=== PATIENT | male | born 1990 | race Caucasian/White ===

== ENCOUNTER 2019-08-14 11:57 | Day surgery (SDC) | payer OTHER ==
[~2019-08-14] VITALS: Ht 190.5 cm; Wt 103.9 kg
[~2019-08-14 11:57] MED LIST: CEFAZOLIN 1,000 MG ONE; FENTANYL PF 250 MCG/5ML ONE; GLYCOPYRROLATE 0.2MG/1ML, 5ML ONE; MIDAZOLAM 1 MG/ML, 2ML ONE; NEOSTIGMINE 1 MG/ML, 10ML ONE; None at This Time; PROPOFOL 10 MG/ML, 20ML ONE; ROCURONIUM 10MG/ML,5ML ONE; ROPIvacaine/PF 0.2%, 20 ML ONE
[2019-08-14] MEDS ORDERED: LACTATED RINGERS 1,000 ML IV ONE (12:15)
[2019-08-14] MEDS ORDERED: GABAPENTIN 300 MG CAPSULE PO STA (12:16)
[2019-08-14] MEDS ORDERED: ACETAMINOPHEN 500 MG TABLET PO STA (12:16)
[2019-08-14 12:27] VITALS: BP 121/83
[2019-08-14] MEDS ORDERED: LIDOCAINE 1%-EPI 1:100K, 20ML ONE (12:56)
[2019-08-14] MEDS ORDERED: ROPIvacaine/PF 0.5%, 30 ML ONE (12:56)
[2019-08-14] MEDS ORDERED: LABETALOL 5MG/ML, 20ML IV PRN (13:00)
[2019-08-14] MEDS ORDERED: HALOPERIDOL 5 MG/ML IV PRN (13:00)
[2019-08-14] MEDS ORDERED: PROMETHAZINE 25 MG/ML, 1ML IV PRN (13:00)
[2019-08-14] MEDS ORDERED: MORPHINE SULFATE 4 MG/ML, 1ML IVPush PRN (13:00)
[2019-08-14] MEDS ORDERED: MEPERIDINE/PF 25MG/ML,1ML IVPush PRN (13:00)
[2019-08-14] MEDS ORDERED: hydrALAzine 20 MG/ML, 1ML IV PRN (13:00)
[2019-08-14] MEDS ORDERED: HYDROmorphone 2 MG/ML, 1ML IVPush PRN (13:00)
[2019-08-14] MEDS ORDERED: KETOROLAC 30 MG/1 ML ONE (13:37)
[2019-08-14] MEDS ORDERED: FENTANYL PF 100 MCG/2ML ONE (14:42)
[2019-08-14] MEDS ORDERED: MEPERIDINE/PF 25MG/ML,1ML ONE (14:42)
[2019-08-14] MEDS ORDERED: OXYcodone 5 MG/5 ML ORAL.SOL UDC ONE ×2 (14:42→15:42)
[2019-08-14] MEDS: OXYcodone 5 MG/5 ML ORAL.SOL UDC PO PRN ×2 (14:45→15:44)
[2019-08-14] MEDS: FENTANYL PF 100 MCG/2ML IV PRN ×3 (15:00→15:27)
== END 2019-08-14 17:15 | disposition home or self-care (01) ==
LOC: OUT 11:57 → EDSTATUS 14:15 → OUT 17:15
PROVIDERS: ATTEND Orthopaedic Surgery
DX: S82.112A Displaced fracture of left tibial spine, initial encounter for closed fracture (principal); Z82.49 Family history of ischemic heart disease and other diseases of the circulatory system; X58.XXXA Exposure to other specified factors, initial encounter; Y93.23 Activity, snow (alpine) (downhill) skiing, snowboarding, sledding, tobogganing and snow tubing; Y92.89 Other specified places as the place of occurrence of the external cause; Y99.8 Other external cause status
CPT/HCPCS: 29850; 64447; C1713; C1769; J0690; J2175; J2250; J2704; J2710; J2795; J3010; J3490; J7120; J1885